=== PATIENT | female | born 1975 | race Caucasian/White ===

== ENCOUNTER 2016-10-23 03:02 | Emergency (ER) | payer OTHER ==
[2016-10-23] MEDS ORDERED: ASPIRIN 81 MG CHEWABLE TAB PO ONE (03:07)
[2016-10-23] MEDS ORDERED: NS 1,000 ML IV ONE (03:07)
--- NOTE | 2016-10-23 03:07 | EDPHY ---
H & P Stated Complaint: left side CP woke pt up from sleep HPI/ROS: HPI CHIEF COMPLAINT: Left-sided chest discomfort, arm tingling numbness HISTORY OF PRESENT ILLNESS: This patient very pleasant 41-year-old female, otherwise healthy, significant past medical history for thyroid disease, presents to the emergency room with left-sided chest discomfort. She describes it as a dull ache. This woke her from sleep. Suddenly. Approximately half an hour ago. Last 20-30 minutes. She does state that she did burp in this relieve some discomfort. However she does state that she has some left arm numbness and tingling, additionally she reports some achiness in her left arm. She states the pain is still in her chest, however improved. This woke her suddenly from sleep. 30 minutes prior to arrival. Additionally she reports to me that she had wine beer and spicy food last night this is not normally what she eats or drinks. Past Medical History: Thyroid disease Past Surgical History: No significant surgical history Social History: Denies daily use of drugs alcohol tobacco products. Family History: Noncontributory. ROS REVIEW OF SYSTEMS: A comprehensive 10 point review of systems is otherwise negative aside from elements mentioned in the history of present illness. Exam Constitutional appears well nontoxic triage nursing summary reviewed, vital signs reviewed, awake/alert. Eyes normal conjunctivae and sclera, EOMI, PERRLA. HENT normal inspection, atraumatic, moist mucus membranes, no epistaxis, neck supple/ no meningismus, no raccoon eyes. Respiratory clear to auscultation bilaterally, normal breath sounds, no respiratory distress, no wheezing. Cardiovascular rate normal, regular rhythm, no murmur, no edema, distal pulses normal. Gastrointestinal soft, non-tender, no rebound, no guarding, normal bowel sounds, no distension, no pulsatile mass. Genitourinary no CVA tenderness. Musculoskeletal no midline vertebral tenderness, full range of motion, no calf swelling, no tenderness of extremities, no meningismus, good pulses, neurovascularly intact. Skin pink, warm, & dry, no rash, skin atraumatic. Neurologic awake, alert and oriented x 3, AAOx3, moves all 4 extremities equally, motor intact, sensory intact, CN II-XII intact, normal cerebellar, normal vision, normal speech. Psychiatric normal mood/affect. Heme/Lymph/Immune no lymphadenopathy. Differential diagnosis includes but is not limited to: ACS, atypical chest pain , pneumothorax, pneumonia, pulmonary embolism, aortic dissection, congestive heart failure, tumor, musculoskeletal pain, esophageal pain, GERD, peptic ulcer disease, pancreatitis Medical Decision Making: Plan for this patient full cardiac cath tech, IV establishment, full-dose aspirin, nitroglycerin to see if this improves her chest discomfort, chest x-ray, EKG rule out acute coronary syndrome, re- evaluate. Re-evaluation: EKG interpretation by me on record in [employer] system. Impression time of EKG 3:14 a.m. sinus tachycardia 102. T-wave inversion in lead 3 otherwise I do not appreciate acute ischemic change on this EKG. 0458: Re-evaluate patient. Troponin negative. D-dimer negative. Chest x-ray has been reviewed I do not see any acute cardiopulmonary disease. Patient still has some chest discomfort. Her arm numbness and tingling initially told me her arm discomfort in left side has improved. This time she still having some chest discomfort will obtain a GI cocktail. I discussed about possibly being observed in the hospital today for chest pain rule out with serial enzymes and EKG and possibly a stress test. She is thinking about this if she wants this. The reason why recommend hospital admission is the left arm discomfort numbness and tingling achiness. This has improved. It is possible this is GI related however she would not give her left arm discomfort. [id number]: I Had a lengthy discussion about admitting this patient. I highly recommend that she be admitted for chest discomfort and left arm pain. However she is declining. Infections refusing hospital admission. She understands the risk of doing so. She understands she is at risk for having a cardiac arrest or poor cardiac outcome. Given that she is refusing to stay in the hospital. She will need to sign out against medical advice. She understands the risk of doing so. Additionally I will have her follow up outpatient with Dr. Christy Mendez. She understands return to the ER if she changes her mind or if she develops worsening chest discomfort shortness of breath, syncope. I went over this with her in detail as well as her partner at bedside. Source: Patient - Personal History LMP (Females 10-55): 8-14 Days Ago Current Tetanus/Diphtheria Vaccine: No Current Tetanus Diphtheria and Acellular Pertussis (TDAP): No - Medical/Surgical History Hx Asthma: No Hx Chronic Respiratory Disease: No Hx Diabetes: No Hx Cardiac Disease: No Hx Renal Disease: No Hx Cirrhosis: No Hx Alcoholism: No Hx HIV/AIDS: No Hx Splenectomy or Spleen Trauma: No Other PMH: N/A - Social History Smoking Status: Never smoked Constitutional: Initial Vital Signs Temperature (C) 36.7 C 10/23/16 03:03 Heart Rate 116 H 10/23/16 03:03 Respiratory Rate 18 10/23/16 03:03 Blood Pressure 156/87 H 10/23/16 03:03 O2 Sat (%) 99 10/23/16 03:03 O2 Delivery Mode Room Air Allergies/Adverse Reactions: No Known Allergies Allergy (Unverified 10/23/16 03:05) Home Medications: Medication Instructions Recorded Levothyroxine 10/23/16 Medical Decision Making - Data Points Laboratory Results: Laboratory Results 10/23/16 03:19 10/23/16 03:19 10/23/16 10/23/16 10/23/16 03:19 03:19 03:19 WBC 7.55 10^3/uL 10^3/uL (3.80-9.50) RBC 4.59 10^6/uL 10^6/uL (4.18-5.33) Hgb 14.6 g/dL g/dL (12.6-16.3) Hct 43.2 % % (38.0-47.0) MCV 94.1 fL fL (81.5-99.8) MCH 31.8 pg pg (27.9-34.1) MCHC 33.8 g/dL g/dL (32.4-36.7) RDW 12.2 % % (11.5-15.2) Plt Count 213 10^3/uL 10^3/uL (150-400) MPV 10.1 fL fL (8.7-11.7) Neut % (Auto) 52.1 % % (39.3-74.2) Lymph % (Auto) 36.0 % % (15.0-45.0) [place] % (Auto) 9.0 % % (4.5-13.0) Eos % (Auto) 2.3 % % (0.6-7.6) Baso % (Auto) 0.5 % % (0.3-1.7) Nucleat RBC Rel Count 0.0 % % (0.0-0.2) Absolute Neuts (auto) 3.93 10^3/uL 10^3/uL (1.70-6.50) Absolute Lymphs (auto) 2.72 10^3/uL 10^3/uL (1.00-3.00) Absolute Monos (auto) 0.68 10^3/uL 10^3/uL (0.30-0.80) Absolute Eos (auto) 0.17 10^3/uL 10^3/uL (0.03-0.40) Absolute Basos (auto) 0.04 10^3/uL 10^3/uL (0.02-0.10) Absolute Nucleated RBC 0.00 10^3/uL 10^3/uL (0-0.01) Immature Gran % 0.1 % % (0.0-1.1) Immature Gran # 0.01 10^3/uL 10^3/uL (0.00-0.10) D-Dimer < 0.27 ug/mLFEU ug/mLFEU (0.00-0.50) Sodium 139 mEq/L mEq/L (134-144) Potassium 3.8 mEq/L mEq/L (3.5-5.2) Chloride 105 mEq/L mEq/L (97-110) Carbon Dioxide 20 mEq/l L mEq/l (22-31) Anion Gap 14 mEq/L mEq/L (8-16) BUN 19 mg/dL mg/dL (7-23) Creatinine 0.8 mg/dL mg/dL (0.6-1.0) Estimated GFR > 60 Glucose 84 mg/dL mg/dL (70-100) Calcium 9.6 mg/dL mg/dL (8.5-10.4) Magnesium 2.1 mg/dL mg/dL (1.6-2.3) Total Bilirubin 0.4 mg/dL mg/dL (0.1-1.4) Conjugated Bilirubin 0.2 mg/dL mg/dL (0.0-0.5) Unconjugated Bilirubin 0.2 mg/dL mg/dL (0.0-1.1) AST 33 IU/L IU/L (14-46) ALT 41 IU/L IU/L (9-52) Alkaline Phosphatase 74 IU/L IU/L (38-126) Troponin I < 0.012 ng/mL ng/mL (0.000-0.034) NT-Pro-B Natriuret Pep 26 pg/mL pg/mL (0-125) Total Protein 7.4 g/dL g/dL (6.3-8.2) Albumin 4.4 g/dL g/dL (3.5-5.0) Lipase 140 IU/L IU/L (23-300) TSH 1.820 uIU/mL uIU/mL (0.465-4.680) Medications Given: Discontinued Medications Al Hydroxide/Mg Hydroxide (Maalox Susp) 30 ml PO ONCE ONE Stop: 10/23/16 04:58 Last Admin: 10/23/16 05:00 Dose: 30 ml Aspirin (Aspirin) 324 mg PO EDNOW ONE Stop: 10/23/16 03:08 Last Admin: 10/23/16 03:26 Dose: 324 mg Hyoscyamine Sulfate (Levsin, Hyomax-Sl) 0.25 mg PO ONCE ONE Stop: 10/23/16 04:58 Last Admin: 10/23/16 05:00 Dose: 0.25 mg Sodium Chloride (Ns) 1,000 mls @ 0 mls/hr IV EDNOW ONE; Wide Open PRN Reason: Protocol Stop: 10/23/16 03:08 Last Admin: 10/23/16 03:27 Dose: 1,000 mls Lidocaine (Lidocaine 2% Viscous) 15 ml PO ONCE ONE Stop: 10/23/16 04:58 Last Admin: 10/23/16 05:00 Dose: 15 ml Nitroglycerin (Nitrostat) 0.4 mg SL EDNOW ONE Stop: 10/23/16 03:18 Last Admin: 10/23/16 05:31 Dose: Not Given Departure - Departure Disposition: Against Medical Advice Clinical Impression: Chest pain Qualifiers: Chest pain type: unspecified Qualified Code(s): R07.9 - Chest pain, unspecified Condition: Fair Instructions: Chest Pain (ED) Additional Instructions: 1. Please return to the emergency room if develops worsening symptoms includes chest pain, shortness of breath or you pass out. 2. I do recommend that you stay in the hospital for further cardiac evaluation. 3. Since her not staying in the hospital I do recommend he have close outpatient follow up with Dr. Christy Mendez. 4. Return if worsening symptoms or your change your mind. Referrals: Alisha Padilla NP [Primary Care Provider] - As per Instructions Christy Mendez MD [Medical Doctor] - As per Instructions
--- NOTE | 2016-10-23 03:16 | CPEKG ---
Heart Rate: 102 RR Interval: 588 P-R Interval: 148 QRSD Interval: 76 QT Interval: 348 QTC Interval: 454 P [place]: -9 QRS [place]: 66 T Wave [place]: 24 EKG Severity - OTHERWISE NORMAL ECG - EKG Impression: SINUS TACHYCARDIA Electronically Signed By: Ata Shepherd 23-Oct-2016 06:45:14
[2016-10-23] MEDS ORDERED: NITROGLYCERIN 0.4 MG BTL SL ONE (03:17)
[2016-10-23 03:31] LABS: % IMMATURE GRANULYOCYTES 0.1 % (0.0-1.1); ABSOLUTE IMMATURE GRANULOCYTES 0.01 10^3/uL (0.00-0.10); ADD DIFF? NO; ADD MORPH? NO; ADD SCAN? NO; ATYPICAL LYMPHOCYTE FLAG 10 (0-99); FRAGMENT RBC FLAG 0 (0-99); HEMATOCRIT 43.2 % (38.0-47.0); HEMOGLOBIN 14.6 g/dL (12.6-16.3); LEFT SHIFT FLG 0 (0-99); LIPEMIA HEMOLYSIS FLAG 90 (0-99); MEAN CELL HEMOGLOBIN 31.8 pg (27.9-34.1); MEAN CELL HEMOGLOBIN CONCENTR. 33.8 g/dL (32.4-36.7); MEAN CELL VOLUME 94.1 fL (81.5-99.8); MEAN PLATELET VOLUME 10.1 fL (8.7-11.7); PLATELET CLUMPS FLAG 10 (0-99); PLATELET COUNT 213 10^3/uL (150-400); RED BLOOD CELL COUNT 4.59 10^6/uL (4.18-5.33); RED CELL DISTRIBUTION WIDTH 12.2 % (11.5-15.2)
[2016-10-23 03:42] LABS: ALANINE AMINOTRANSFERASE 41 IU/L (9-52); ALBUMIN 4.4 g/dL (3.5-5.0); ALKALINE PHOSPHATASE 74 IU/L (38-126); ANION GAP 14 mEq/L (8-16); ASPARTATE AMINOTRANSFERASE 33 IU/L (14-46); BILIRUBIN,TOTAL 0.4 mg/dL (0.1-1.4); BILIRUBIN-CONJUGATED 0.2 mg/dL (0.0-0.5); BILIRUBIN-UNCONJUGATED 0.2 mg/dL (0.0-1.1); CALCIUM 9.6 mg/dL (8.5-10.4); CARBON DIOXIDE 20 mEq/l (22-31); CHLORIDE 105 mEq/L (97-110); CREATININE 0.8 mg/dL (0.6-1.0); GLOMERULAR FILTRATION RATE > 60; GLUCOSE 84 mg/dL (70-100); MAGNESIUM 2.1 mg/dL (1.6-2.3); POTASSIUM 3.8 mEq/L (3.5-5.2); SODIUM 139 mEq/L (134-144); TOTAL PROTEIN 7.4 g/dL (6.3-8.2)
[2016-10-23 03:54] LABS: TROPONIN I < 0.012 ng/mL (0.000-0.034)
[2016-10-23 04:00] VITALS: RESP 16; TEMP 97.9
[2016-10-23] MEDS ORDERED: HYOSCYAMINE SULFATE 0.125 MG TAB PO ONE (04:57)
[2016-10-23] MEDS ORDERED: LIDOCAINE 2% VISCOUS 15 ML UDCUP PO ONE (04:57)
[2016-10-23] MEDS ORDERED: MAG HYDROX/AL HYDROX/SIMETH 30 ML UDCUP PO ONE (04:57)
[2016-10-23 05:44] VITALS: BP 126/86; PULSE 77; O2SAT 95
== END 2016-10-23 05:44 | disposition left against medical advice (07) ==
DX: R07.9 Chest pain, unspecified (principal)